=== PATIENT | male | born 1945 | race Caucasian/White ===

== ENCOUNTER 2017-12-22 08:51 | Day surgery (SDC) | payer MEDICARE, SELFPAY ==
[2017-12-21 10:22] VITALS: BMI 26.5
[2017-12-22] VITALS (17 sets, daily range): BP systolic 89–135; BP diastolic 60–77; PULSE 54–85; RESP 12–20; TEMP 35–36.5; O2SAT 94–100
--- NOTE | 2017-12-22 10:44 | P.PCN_ITS ---
- Procedure: Date: 12/22/17 Procedure Performed:: Total colonoscopy to terminal ileum with polypectomy Indications:: Patient is a 72-year-old white male who is referred by Dr. Lewis is essentially for screening colonoscopy. He had undergone colonoscopy about 20 years ago in [place] with minimal if any sedation. Patient has had some right -sided abdominal pain and has undergone gallbladder ultrasound. He has relatively constant diffuse right-sided abdominal pain with sporadic intermittent exacerbations not related to eating. Performing Provider:: Raul Rubi MD Referring Provider:: Joshua Sedation:: Versed 9 mg, fentanyl 150 mcg. Procedure:: After establishment of adequate intravenous sedation variable stiffness Olympus colonoscope was inserted via the anus and advanced to the cecum. Advancement into the right colon was rather difficult as he had a very floppy colon. Ultimately after prolonged period of time the ileocecal valve and appendiceal orifice were clearly identified. Colonoscope was advanced into the terminal ileum which appeared grossly normal. Colonoscope was withdrawn through the colon with careful surveillance. Near the splenic flexure there was a diminutive polyp. This was removed with cold forceps. In the sigmoid colon there is moderately severe diverticulosis but no diverticulitis. Within the rectum retroflexion was performed which revealed no evidence of any pathologic internal hemorrhoids. Colonoscope was withdrawn. Findings:: Diverticulosis Diminutive polyp at splenic flexure Recommendations:: Follow-up on histopathology of the polyp. This may be benign in if so advocate 10 year follow-up colonoscopy. His right side of the symptoms may be secondary to somewhat of an intermittent right colon volvulus given the findings. He may require HIDA scan for further workup however. Complications:: None Estimated blood obtained (mL): 1
== END 2017-12-22 11:35 | disposition home or self-care (01) ==
LOC: OUTP 08:53
PROVIDERS: Family Provider Family Medicine; PCP Family Medicine; Visit Provider Surgery
PROC: 0DJD8ZZ Inspection of Lower Intestinal Tract, Via Natural or Artificial Opening Endoscopic (ICD-10-PCS; principal; 2017-12-22 09:30)
DX: Z12.11 Encounter for screening for malignant neoplasm of colon (principal); K63.5 Polyp of colon; K57.30 Diverticulosis of large intestine without perforation or abscess without bleeding
CPT/HCPCS: 45380; 88305; 99152; 99153

== ENCOUNTER → 2018-01-13 09:16 | Outpatient (CLI) | payer MEDICARE, SELFPAY ==
--- NOTE | 2018-01-13 09:20 | NM_ITS ---
NM hepatobiliary wo pharm HISTORY: Right upper quadrant pain ITS.REASON: ABDOMINAL PAIN ORDERING PHYSICIAN: Brandyn Lewis MD PATIENT AGE: 72 years COMPARISON is made to ultrasound of 01/13/2018 DOSE: 8.82 mCi technetium Choletec. Fatty meal: Ensure. No pain reported with fatty meal FINDINGS: Homogeneous activity is present within the hepatic parenchyma. Activity is present in the gallbladder by 30 minutes. Activity is present in the small bowel by 15 minutes. The gallbladder ejection fraction is calculated to be 27% The patient did not report pain or other symptoms during or after the fatty meal ingestion. IMPRESSION: 1. No evidence of common or cystic duct obstruction. 2. Slightly low gallbladder ejection fraction of 27%. Please correlate with clinical parameters as to the significance
--- NOTE | 2018-01-13 09:20 | US_ITS ---
US abdomen limited: HISTORY: Right upper quadrant pain ITS.REASON: ABDOMINAL PAIN ORDERING PHYSICIAN: Brandyn Lewis MD PATIENT AGE: 72 years COMPARISON: 05/18/2017 FINDINGS: PANCREAS: Unremarkable. No obvious mass or abnormal fluid collection. No ductal dilatation LIVER: Fatty liver RIGHT KIDNEY: Unremarkable. Normal size and echogenicity. No hydronephrosis GALLBLADDER: No gallstones, gallbladder wall thickening, pericholecystic fluid, or biliary dilatation. IMPRESSION: 1. Negative gallbladder ultrasound. 2. Fatty liver
== END ==
PROVIDERS: Family Provider Family Medicine; PCP Family Medicine; Visit Provider Family Medicine
DX: R10.11 Right upper quadrant pain (principal)
CPT/HCPCS: 76705; 78226; A9537

== ENCOUNTER → 2018-01-26 12:09 | Outpatient (CLI) | payer MEDICARE, SELFPAY | PROVIDERS: PCP Family Medicine; Visit Provider Family Medicine | DX: R55 Syncope and collapse (principal) | CPT/HCPCS: 93225; 93226 ==

== ENCOUNTER → 2018-02-05 11:32 | Outpatient (CLI) | payer MEDICARE, SELFPAY ==
--- NOTE | 2018-02-05 11:50 | NM_ITS ---
History and Indications: Hypertension, hyperlipidemia, syncope and fatigue Procedure: Patient exercised on Adrian protocol 7 minutes and 01seconds, resting heart rate was 65 beats resting blood pressure 149/88, with exercise maximum heart rate achieved was 1 23 bpm which is equal to 89% of the maximum predicted heart rate and a blood pressure was 182/70. Test was started due to shortness of breath patient denied complained of chest pain. Patient has good exercise capacity achieved 10.1METS of workload on treadmill, the blood pressure response to exercise was adequate. Electrocardiogram: Resting electrocardiogram showed sinus rhythm, with exercise there is less than 1.[address] segment depression from the baseline EKG. The EKG portion of the exercise Myoview is negative for ischemia. Cardiac stress and resting SPECT images: Cardiac stress and rest SPECT images were obtained using technetium 99 Myoview 31.9 mCi at stress content 10.9 mCi at rest, gated SPECT further analysis of segmental wall motion and calculation of the ejection fraction also done. Cardiac stress and resting SPECT images show uniform myocardial activity without any segmental abnormality, computer derived ejection fraction is 56% with no obvious regional wall motion abnormality, right ventricle is normal size and contractility. Conclusion: 1. The EKG portion of the exercise Myoview is negative for ischemia, patient has good exercise capacity achieved 10.1 mets of workload on treadmill, the blood pressure response to exercise was adequate, there was no exercise-induced chest discomfort. 2. No obvious scintigraphic evidence of reversible ischemia seen, computer derived ejection fraction is 56% with no obvious regional wall motion abnormality, right ventricle is normal size and contractility. 3. Normal exercise Myoview study.
== END ==
PROVIDERS: Family Provider Family Medicine; PCP Family Medicine; Visit Provider Family Medicine
DX: R55 Syncope and collapse (principal); R07.89 Other chest pain
CPT/HCPCS: 78452; 93017; A9502

== ENCOUNTER → 2019-03-14 08:14 | Outpatient (CLI) | payer MEDICARE, SELFPAY ==
--- NOTE | 2019-03-14 08:36 | CT_ITS ---
CT head/brain wo con HISTORY: ITS.REASON: EPISODIC PAROXYSMAL HEMICRANIA ORDERING PHYSICIAN: Ger Strong MD PATIENT AGE: 73 years COMPARISON: None TECHNIQUE: Axial images obtained without contrast. Brain and bone windows reviewed. All CT scans at the facility use one or more dose reduction, viz: automated exposure control, ma/kV adjustment per patient size (including targeted exams where dose is matched to indication, i.e. head), or iterative reconstruction technique. FINDINGS: There is no mass, hemorrhage or extra-axial fluid collection. Ventricles, sulci and cortical areas are normal. There are symmetrical hypodense areas along the proximal internal and external counseling areas bilaterally and the proximal centrum semiovale deep white matter areas. The visualized paranasal sinuses and mastoid air cells are clear. There is no acute osseous process. Impression: No acute intracranial process. White matter findings are nonspecific although likely from chronic microvascular ischemia.
[2019-03-14 08:38] LABS: Blood Urea Nitrogen 21 mg/dL (7-18); Creatinine,Serum 1.37 mg/dL (0.70-1.30); Estimated Glomerular Filt Rate 51 ml/min (>60); GFR (African American) 62 ML/MIN (>60)
== END ==
PROVIDERS: Visit Provider Family Medicine
DX: G44.039 Episodic paroxysmal hemicrania, not intractable (principal)
CPT/HCPCS: 36415; 70450; 82565; 84520

== ENCOUNTER → 2019-11-29 08:55 | Outpatient (CLI) | payer MEDICARE, SELFPAY ==
--- NOTE | 2019-11-29 09:02 | US_ITS ---
PROCEDURE: US ABDOMEN LIMITED CLINICAL INDICATION: RUQ PAIN COMPARISON: No exams were available for comparison FINDINGS: PANCREAS: Pancreas is somewhat hyperechoic. This is nonspecific. No obvious pancreatic mass or ductal dilatation LIVER: No focal liver lesions demonstrated. Homogeneous echogenicity. No intrahepatic biliary ductal dilatation evident. There is appropriate direction of blood flow within a non dilated portal vein RIGHT KIDNEY: Unremarkable. Normal size and echogenicity. No hydronephrosis GALLBLADDER: No gallstones, gallbladder wall thickening, pericholecystic fluid, or biliary dilatation. IMPRESSION: Unremarkable gallbladder ultrasound. Hyperechoic pancreas of questionable clinical significance Dictated by: John Boyd MD 11/29/2019 15:13 Electronically signed by John Boyd MD in [place] 11/29/2019 15:13
== END ==
PROVIDERS: PCP Family Medicine; Referring Provider Family Medicine; Visit Provider Family Medicine
DX: R10.11 Right upper quadrant pain (principal)
CPT/HCPCS: 76705

== ENCOUNTER → 2021-09-20 15:11 | Outpatient (CLI) | payer MEDICARE, SELFPAY ==
--- NOTE | 2021-09-20 15:16 | XR_ITS ---
PROCEDURE INFORMATION: Exam: XR Left Ribs with PA Chest Exam date and time: 09/20/2021 3:16 PM Age: 75 years old Clinical indication: Chest wall pain; Left; Additional info: Rib pain on lt side TECHNIQUE: Imaging protocol: XR Left ribs with PA chest. Views: 3 views COMPARISON: No relevant prior studies available. FINDINGS: Lungs: Minor left lung base atelectasis. No consolidation. Pleural spaces: Unremarkable. No pleural effusion. No pneumothorax. Heart/Mediastinum: Unremarkable. No cardiomegaly. Bones/joints: Unremarkable. IMPRESSION: Minor left lung base atelectasis.
== END ==
PROVIDERS: PCP Family Medicine; Visit Provider Family Medicine
DX: R07.81 Pleurodynia (principal)
CPT/HCPCS: 71101

== ENCOUNTER → 2022-12-29 13:35 | Outpatient (CLI) | payer MEDICARE, SELFPAY ==
--- NOTE | 2022-12-29 13:41 | MM_ITS ---
PROCEDURE INFORMATION: Exam: US Left Breast, Complete MG Left Diagnostic Breast Tomosynthesis Exam date and time: 12/29/2022 2:37 PM Age: 77 years old Clinical indication: Male patient with left breast pain. No reported family history of breast cancer. TECHNIQUE: Imaging protocol: Complete ultrasound of all four quadrants of the left breast and the retroareolar regions, including ultrasound of the axilla when performed. Left Diagnostic tomosynthesis and 2D mammography including computer-aided detection (CAD) when performed. Unilateral or bilateral exam. COMPARISON: MG MM DIG MAMM DX UNILAT LT CAD 12/29/2022 1:44 PM FINDINGS: LEFT MAMMOGRAPHY: Breast composition: The breasts are almost entirely fatty. Mass: None. Architectural distortion: None. Calcifications: No suspicious calcifications. Asymmetric density: None. Skin thickening: None. Axillary adenopathy: None. Other: No subareolar flame shaped opacity, to suggest at glandular component of gynecomastia. ULTRASOUND: Left breast, all 4 quadrants retroareolar and axilla. No sonographic findings demonstrated in the breast. In the axilla, superficially, oval echogenic mass measuring 0.5 x 0.4 x 0.2 cm, most likely a lipoma. Sonographically unremarkable axillary lymph nodes. Right breast, all 4 quadrants and retroareolar for comparison, demonstrates no sonographic findings. IMPRESSION: See comments Incidental 0.3 cm probable lipoma in the left axilla, suggest six-month follow-up targeted left sonography, unless otherwise clinically indicated. Fatty replaced left breast with no evidence of retroareolar glandular component of gynecomastia. Further evaluation of a painful abnormality should be based on clinical grounds regardless of radiographic findings or lack thereof. No mammographic evidence of malignancy. ASSESSMENT: BI-RADS Category 3: Probably benign
== END ==
PROVIDERS: PCP Family Medicine; Visit Provider Family Medicine
DX: N64.4 Mastodynia (principal); D48.62 Neoplasm of uncertain behavior of left breast
CPT/HCPCS: 76641; 77061; 77065; G0279